=== PATIENT | female | born 1930 | race Caucasian/White ===

== ENCOUNTER → 2019-06-20 | Outpatient (REF) | payer MEDICARE, OTHER ==
[~2019-06-20] MED LIST: /ALEN70TA OR; CLON0.2T OR; FERR325T OR; HYDR25TA6 OR; LEVOXYL25 MCG OR; METO-743 OR; PRAV1TAB39 OR; Protonix PO; SPIR50TA2 OR
[2019-06-20 16:33] LABS: INR 1.03; PROTHROMBIN TIME 13.2 SECONDS (11.8-14.0)
== END ==
LOC: M LAB REF 16:14
PROVIDERS: ATTEND Internal Medicine
DX: R23.3 Spontaneous ecchymoses (principal)

== ENCOUNTER → 2020-06-27 | Outpatient (REF) | payer MEDICARE ==
[2020-06-28 13:23] LABS: PERCENT SATURATION 26.2 % (13.2-45.0)
== END ==
LOC: M LAB REF 12:23
PROVIDERS: ATTEND Internal Medicine
DX: I12.9 Hypertensive chronic kidney disease with stage 1 through stage 4 chronic kidney disease, or unspecified chronic kidney disease (principal); D64.9 Anemia, unspecified